=== PATIENT | male | born 1960 | race Caucasian/White ===

== ENCOUNTER → 2016-12-14 | Day surgery (SDC) | payer OTHER ==
[~2016-12-14] VITALS: Ht 180.3 cm; Wt 69.0 kg
[~2016-12-14] MED LIST: COLACE100 MG PO; DURAGESIC1 EAC1 TOP; LISINOPRIL-HCT1 EAC1 PO; MORPHINE 20MG/ML PO; MORPHINE S100 MG/5 M PO; NORCO 5-325 TA1 EACH PO; ZANTAC (NON-FO150 MG PO
--- NOTE | ~2016-12-14 | OR ---
[facility] 56 Y [address] ROOM: [place] [address] LOCATION: [facility] [place] ADMIT DATE: 12/14/2016 OR/Procedure Report DISCHARGE DATE: FAMILY PHYSICIAN: Lucrecia Johnson MD ATTENDING PHYSICIAN: SOCORRO GAMINO SURGEON: Socorro Gamino MD CAREER DEVELOPMENT COORDINATOR: None. 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 PROCEDURES PERFORMED: 1. Micro-direct laryngoscopy with biopsy. 2. Rigid bronchoscopy. 3. Rigid esophagoscopy. ANESTHESIA: General endotracheal. COMPLICATIONS: None. BLOOD LOSS: 15 mL. SPECIMENS: 1. Left piriform sinus. 2. Right laryngeal surface of the epiglottis. 3. Left base of tongue. 4. Right base of tongue. 5. Left tonsil. 6. Right tonsil. INDICATIONS: The patient is a 56-year-old male, who presented to Clinic with a cystic left neck mass in level IV. This was aspirated, and did return as squamous cell carcinoma. This area has re-filled since that time. We discussed that since he had a negative flexible laryngoscopic examination in the Clinic, a rigid bronchoscopy, esophagoscopy, and direct laryngoscopy would be required to rule out any other mucosal lesions or masses. The patient provided informed consent. DESCRIPTION OF PROCEDURE: The patient was taken to the Operating Suite, and placed on the table in a supine position. All pressure points were padded. A time-out was performed, correctly identifying the patient and the procedure. PATIENT'S NAME: ANKITA SANCHEZRY Amie [facility] AGE: 56 Y [address] ROOM: [place], [place] [address] LOCATION: [facility] [place] ADMIT DATE: 12/14/2016 OR/Procedure Report DISCHARGE DATE: FAMILY PHYSICIAN: Lucrecia Johnson MD ATTENDING PHYSICIAN: SOCORRO GAMINO General endotracheal anesthesia was initiated. The patient was rotated 90 degrees counter clockwise, and we began with the direct laryngoscopy portion. The teeth were protected with a tooth guard. The laryngoscope was inserted, and a complete examination of the soft palate, tonsils, posterior pharynx, pharyngeal ayala, hypopharynx, epiglottis, supraglottis, and glottis was performed. None of these areas showed obvious mucosal changes, mass, or ulceration. However, there was a slight roughness to the mucosa of the left piriform sinus. Therefore, this area was biopsied. Similarly, there was a small, purple-appearing hematoma, possibly secondary to intubation trauma. However, this area was also biopsied on the right laryngeal surface of the epiglottis. After these biopsies were performed, and the entire area was once again palpated, an endoscopy was again performed. Random biopsies were taken of the left and right bases of tongue, as well as the left and right tonsils, none of which appeared grossly abnormal. A rigid esophagoscopy was performed, which was unremarkable. Finally, the endotracheal tube was removed, and rigid bronchoscopy and tracheoscopy were performed without obvious lesions in the mainstem bronchus or trachea. The endotracheal tube was replaced. POSTOPERATIVE CONDITION: He was returned to the care of Anesthesia for awakening, and transferred to Recovery Room in stable condition. MD YANETH WALTERS/gery /[id number] d: 12/14/16 2348 t: 12/21/16 0902, OPERATIVE SUMMARY
== END | disposition disaster alternative care site (69) ==
LOC: GPOC 12-13 17:00 → GSDC 09:02
PROC: 0CBM8ZX Excision of Pharynx, Via Natural or Artificial Opening Endoscopic, Diagnostic (ICD-10-PCS; principal; 2016-12-14)
PROC: 0BJ08ZZ Inspection of Tracheobronchial Tree, Via Natural or Artificial Opening Endoscopic (ICD-10-PCS; 2016-12-14)
PROC: 0DJ08ZZ Inspection of Upper Intestinal Tract, Via Natural or Artificial Opening Endoscopic (ICD-10-PCS; 2016-12-14)
DX: C12 Malignant neoplasm of pyriform sinus (principal); I10 Essential (primary) hypertension; K21.9 Gastro-esophageal reflux disease without esophagitis; F17.200 Nicotine dependence, unspecified, uncomplicated
CPT/HCPCS: J1100; J2001; J2250; J2405; J7030

== ENCOUNTER → 2017-01-18 | Outpatient (CLI) | payer OTHER | END | disposition disaster alternative care site (69) | LOC: GKIC 11:29 | DX: C12 Malignant neoplasm of pyriform sinus (principal); C79.51 Secondary malignant neoplasm of bone; R91.8 Other nonspecific abnormal finding of lung field | CPT/HCPCS: A9552 ==

== ENCOUNTER → 2017-03-23 | Day surgery (SDC) | payer OTHER ==
[~2017-03-23] VITALS: Ht 180.3 cm; Wt 60.9 kg
--- NOTE | ~2017-03-23 | OR ---
PATIENT'S NAME: KEILA SANCHEZ [facility] AGE: 56 Y [address] ROOM: [place] [address] LOCATION: [facility] ADMIT DATE: 03/23/2017 OR/Procedure Report DISCHARGE DATE: FAMILY PHYSICIAN: KYRA BRANDT APRN ATTENDING PHYSICIAN: Alberta Aguayo SURGEON: Rey Hogue MD CARCASS SPLITTER: DATE OF PROCEDURE: 03/23/2017 PREOPERATIVE DIAGNOSIS: Severe dysphagia from head and neck cancer. POSTOPERATIVE DIAGNOSIS: Severe dysphagia from head and neck cancer. PROCEDURE PERFORMED: EGD with PEG placement. ANESTHESIA: MAC. SPECIMEN: None. REASON FOR PROCEDURE: The patient is a 56-year-old gentleman, who is currently undergoing treatment for a head and neck cancer. He has developed rather significant dysphagia. He could not even tolerate water. A feeding tube was requested. PROCEDURE IN DETAIL: The patient was taken to the endoscopy suite and placed in the supine position. After IV sedation had been given, the gastroscope was advanced through the bite block. There was a lot of mucousy secretions in the posterior oropharynx, we were able to suction these out and intubate the esophagus relatively easily. The scope was then advanced all the way down into the duodenum. It was withdrawn and retroflexed views were obtained. The stomach was then fully insufflated. Transillumination and pressure on the abdominal wall were used to localize an area for tube placement. This was then prepped with ChloraPrep and draped. Lidocaine was injected into the area. A 1 cm stab incision was made. A needle was then advanced through the abdominal wall and visualized entering the gastric mucosa. A guidewire was advanced through this needle. The guidewire was grasped with a snare and carefully withdrawn through the esophagus and oropharynx. The PEG tube was advanced over the guidewire and pulled into position. A bolster was used to hold this in place. POSTPROCEDURE PLAN: The patient will be discharged home when awake and alert. They can begin using the tube today. PATIENT'S NAME: KEILA SANCHEZ [facility] AGE: 56 Y [address] ROOM: [place] [address] LOCATION: [facility] ADMIT DATE: 03/23/2017 OR/Procedure Report DISCHARGE DATE: FAMILY PHYSICIAN: KYRA BRANDT APRN ATTENDING PHYSICIAN: Alberta Aguayo ALBERTA AGUAYO MD FOR REY HOGUE MD JTM/modl /[id number] d: 03/23/17 0836 t: 03/26/17 1026, OPERATIVE SUMMARY
== END ==
LOC: GPOC 03-22 14:00 → GEND 06:30
PROC: 0DH63UZ Insertion of Feeding Device into Stomach, Percutaneous Approach (ICD-10-PCS; principal; 2017-03-23)
DX: C76.0 Malignant neoplasm of head, face and neck (principal); R13.10 Dysphagia, unspecified; I10 Essential (primary) hypertension; K21.9 Gastro-esophageal reflux disease without esophagitis; F41.9 Anxiety disorder, unspecified; F32.9 Major depressive disorder, single episode, unspecified; M19.90 Unspecified osteoarthritis, unspecified site; E86.0 Dehydration; Z79.899 Other long term (current) drug therapy
CPT/HCPCS: J0690; J2001; J7030